=== PATIENT | female | born 1955 | race Caucasian/White ===

== ENCOUNTER 2024-02-01 20:31 | Inpatient (IN) | payer MEDICARE, OTHER, SELFPAY ==
[2024-02-01 18:07] VITALS: BMI 28.3
[2024-02-01 18:10] VITALS: BP 148/111
[2024-02-01 18:12] LABS: Glucose - Point of Care 112 mg/dl (70-99)
[2024-02-01 18:13] VITALS: BP 148/111
--- NOTE | 2024-02-01 18:23 | ED.CVA ---
History of Present Illness
General
Chief Complaint: CVA/TIA Symptoms
Time Seen by Provider: 02/01/24 18:10
Onset of Stroke Symptoms
Onset of symptoms known: No
Time pt last seen normal is known: Yes
Date last time pt seen normal: 01/31/24
Travel History
Have you had any contact with someone who has COVID-19?: No
Do you have any symptoms of coronavirus? Fever > 100 degrees, chills, cough, shortness of breath, sore throat, loss of taste or smell, muscle aches, or headache?: No
History of Present Illness
History of Present Illness:
See MDM
Past History
Past History
ED Past Medical History: Asthma, HTN and Other (Multiple sclerosis, Self caths, Right foot drop)
ED Past Surgical History: Appendectomy
Social History
Tobacco: Former smoker
Alcohol: Occasional
Drug: None
Personal:
Living: with family
Phy Exam
Physical Exam
Physical Exam:
See MDM
Scores
NIH Stroke Score
Level of Consciousness: 0 - Alert
LOC Questions: 0-Answers both correctly
LOC Commands: 0-Performs both correctly
Best Horizontal Gaze: 0-Normal
Visual [place]: 0=Normal, no visual loss
Facial Palsy: 1=Minor paralysis
Motor - Right Arm: 1=Drift < 10 seconds
Motor - Left Arm: 0=No drift 10 seconds
Motor - Right Le-Drift < 5 seconds
Motor - Left Le-No drift 5 seconds
Limb Ataxia: 0-Absent
Sensation: 0-Normal
Best Language: 0-No aphasia
Dysarthria: 0-Normal
Extinction and Inattention: 0-No abnormality
Total Score:: 3
Course
Orders/Labs/Results
Orders:
Orders
02/01/24 18:10
CT Head W/o Cont STROKE ALERT Urgent
Comment:
Reason For Exam: R side weakness since [address] Head/Neck Ang STROKE ALERT Urgent
Comment:
Reason For Exam: R side weakness since 11 am
Cardiac Monitoring- Treatment ONCE
02/01/24 18:11
Electrocardiogram (*1) Stat
Reason for Study: Other
Other Reason for Exam: neuro symptoms
EKG- Treatment ONCE
02/01/24 18:30
Cardiovascular Evaluation Urgent
Complete Blood Count/With Diff Urgent
Comprehensive Metabolic Panel Urgent
Glycohemoglobin (HgbA1c) Urgent
Troponin I Urgent
02/01/24 19:04
Aspirin Chewable [Low Strength Aspirin] 81 mg PO NOW STA
Clopidogrel Bisulfate [Plavix] 75 mg PO NOW STA
02/01/24 19:15
Consult Neurology [NEUROLOGY CONSULT] Routine
Consulting Provider: Nieves Lewis
Was physician already notified: Yes
02/01/24 19:34
PTT Urgent
Prothrombin Time Urgent
02/01/24 20:17
Admit/Transfer Patient As Directed
Co-Sign Provider:
Level of Care: Inpatient admission
Assign to:: Telemetry
Physician / Group: Ana/hospitalist
Diagnosis: R sided weakness/R facial droop
Reason for Telemetry: CVA/TIA
Date to Stop Telemetry: 02/04/24
Time to Stop Telemetry: 11:00
Reason for Hospitalization: R sided weakness/R facial droop
Expected length of stay greater than two midnights?: Yes
ELOS- Estimated Length of Stay in days: 3
I certify the patient meets the requirements for IP care: Yes
02/01/24 20:18
Code Status As Directed
Resuscitation Status: Full Code
02/01/24 20:21
Add On- LAB Routine
Tests Added?: lipid panel, A1c
02/01/24 22:36
Acetaminophen [Tylenol/Feverall] 650 mg RECTAL Q4HPRN PRN
Acetaminophen [Tylenol] 650 mg PO Q4HPRN PRN
Albuterol [ProAIR HFA INHALER] 2 puff INH R Q4HPRN PRN
Calcium Carbonate Chewable [Tums] 1 tablet PO Q4HPRN PRN
HydrALAZINE [Apresoline] 5 mg IV Q4HPRN PRN
Ropinirole [Requip] 1 mg PO HS
02/01/24 22:36
Case Management Consult ONCE
Case Management Consult: Discharge Planning
Comment: stroke/tia
DIETARY CONSULT Routine
Reason for Consult: stroke/TIA
NEUROLOGY CONSULT Urgent
Consulting Provider: Nieves Lewis
Was physician already notified: Yes
Carpet Renovator Urgent
Activity As Directed
Activity Level: As Tolerated
NIH Stroke Scale As Directed
Directions: Per protocol
Comment: every shift and with any change in condition or mental status
Neurological Checks As Directed
Frequency: q4h
Additional Instructions:: q4h x 24h upon admission to the floor, then qshift & with any change in condition
and mental status
Patient Education As Directed
Type: Stroke education packet
Comment: provide to patient and family
Pneumatic Compression Sleeves As Directed
Type: Knee high
Swallow Screening CVA/TIA ONLY As Directed
Comment: NPO until swallowing screening completed
If patient FAILS swallow screening:: NPO, Speech Therapy consult, Aspiration Precautions
If patient PASSES swallow screening, diet:: Low Fat
Above diet order entered?: Yes- passed screening
Vital Signs As Directed
Frequency: Per unit guidelines
Ot Eval And Treat Routine
Pt Eval And Treat Routine
Activity Level: As Tolerated
Speech Therapy Eval & Treat Routine
DX Deep Vein Thrombosis Video Routine
02/02/24 05:39
Cardiovascular Evaluation IN AM
02/02/24 08:00
Artificial Tears (Pf) [Refresh Eye Drops (Pf)] 1 drops BOTH EYES BID
Aspirin Chewable [Low Strength Aspirin] 81 mg PO DAILY
Baclofen [Lioresal] 20 mg PO BID
Cholecalciferol (Vitamin D3) [VITAMIN D3 (cholecalciferol)] 50 mcg PO BID
Clopidogrel Bisulfate [Plavix] 75 mg PO DAILY
Cyanocobalamin [Vitamin B-12] 1,000 mcg PO DAILY
Fluticasone/Salmeterol 45 [Advair Hfa 45/21 Mcg Inhaler] 2 puff INH R BID
Gabapentin [Neurontin] 600 mg PO BID
Modafinil [Provigil] 200 mg PO DAILY
02/02/24 20:00
Atorvastatin [Lipitor] 40 mg PO DAILY@1999
02/04/24 11:00
DC Protocol for Telemetry ONCE
Abnormal Lab Results
02/01/24 02/01/24
18:10 18:30
MCH 31.2 H pg
(27.0-31.0)
Lymphocytes % 18.6 L %
(20.5-51.1)
Creatinine 0.5 L mg/dL
(0.6-1.0)
Glucose 106 H mg/dl
(70-99)
Hemoglobin A1c 6.0 H %
(4.0-5.6)
Total Protein 6.2 L g/dl
(6.3-8.2)
POC Glucose 112 H mg/dl
(70-99)
02/01/24 18:30
02/01/24 18:30
Vital Signs
Initial and Last Documented VS:
Initial Vital Signs
Temp Pulse Resp BP Pulse Ox
98.4 F 61 16 148/111 97
02/01/24 18:10 02/01/24 18:10 02/01/24 18:10 02/01/24 18:10 02/01/24 18:10
Last Documented Vital Signs
Temp Pulse Resp BP Pulse Ox
98.1 F 91 17 122/85 97
02/02/24 15:00 02/02/24 15:00 02/02/24 15:00 02/02/24 15:00 02/02/24 15:00
MDM/Problems Addressed
Differential Diagnosis Includes:
HPI and MDM Narrative:
69-year-old female presenting with prearrival stroke alert. Patient was last normal at 1 AM when she went to bed. When she woke up at 11 AM, she noted that her right arm and right leg were weak. She also noted a right facial droop. She does have
a history of MS and states her right leg is chronically weak from the MS but states this feels different. She took 3 baby aspirin and was hoping that symptoms would resolve. When she realized that they were not getting any better, she called 911.
Prearrival stroke alert was called but patient is not a TNK candidate based on the timing of the strokelike symptoms
Physical exam
General: Well appearing and non-toxic
HEENT: protecting airway
Neck: appears supple
CV: No evidence of cyanosis. Regular rate and rhythm
Resp: No accessory muscle use
Abd: Non-distended
Extremities: No deformities
Neuro: alert. Right arm and right leg drift. Mild right facial paralysis. Sensation intact throughout
Psych: Normal affect
Skin: Intact
Problems Addressed including Acute and Chronic Conditions affecting care:
1. Strokelike symptoms
Acuity: acute
Prognosis: unstable
Details: Stroke alert called prior to arrival. Given that this was a wake-up stroke already out of the TNK window, we will not TNK. Will obtain CTA
Updates
Radiology called indicating CT and CTA both negative
Discussed with neurology. Since he already took 3 aspirins, will give with baby aspirin and will give dose of Plavix and admit
Differential Diagnosis (but not limited to): MS flare, stroke
Testing considered: MR brain but will admit for this
Drug therapy (if applicable): OTC meds, please see d/c instruction regarding Rx drugs
Amount and/or Complexity of Data Reviewed
Clinical info obtained from: Patient
External data reviewed: N/A
Labs I independently reviewed (but not limited to): Hgb stable
Radiology: The CT scan was personally and independently reviewed. In addition, official CT report reviewed.
Pulse Ox: not hypoxic
EKG independently reviewed: Sinus rhythm, PVCs, no STEMI
Fishing Tool Supervisor: Sinus rhythm
Critical Care: N/A
Risk of Complication:
Social Determinants of health: Good social support
Discussed with other providers: Neurology, Hospitalist
Escalation of Care includes Admit/Obs: Given the concern for stroke, will admit
Occasional wrong word or 'sound a like' substitutions may have occurred due to the inherent limitations of voice recognition software. Read the chart carefully and recognize, using context, where substitutions have occurred.
*Critical Care Note
Total Time (30-74mins, 75-104mins- exclusive of procedures): Not Applicable
ED Attending Note
-
Portions of this chart may have been created with voice recognition software.� Occasional wrong word or��sound alike� substitutions may have occurred due to the inherent limitations of voice recognition software.
Discharge Plan
Departure
Patient Disposition: Admit
Date of Disposition: 02/01/24
Time of Disposition: 19:14
Admit to: Telemetry
Presentation/result/management discussed w/ accepting MD/DO: Hospitalist
Discharge Problem:
Stroke-like symptoms
Interventions
Interventions:
*Risk Screen - Suicide Last Done: 02/01/24 19:30
*General Assessment Last Done: 02/01/24 20:39
*Neglect/Abuse Screening Last Done: 02/01/24 19:30
ED- Fall Risk Assessment Last Done: 02/01/24 19:30
*ED COVID-19 Vaccine History Last Done: 02/01/24 22:41
*Nursing Disposition Last Done: 02/01/24 22:41
ED- Pulmonary Assessment Last Done: 02/01/24 19:30
ED- Neurological Assessment Last Done: 02/01/24 19:30
ED- Cardiac Assessment Last Done: 02/01/24 19:30
ED Swallowing Screen Last Done: 02/01/24 19:44
Discharge Date and Time
Discharge Date/Time: 02/01/24 22:41
[2024-02-01 18:36] LABS: % Basophils 0.5 % (0-2); % Eosinophils 5.1 % (0-6); % Immature Granulocytes 0.1 % (0-0.5); % Lymphocytes 18.6 % (20.5-51.1); % Monocytes 6.3 % (1.7-9.3); % Neutrophils 69.4 % (42.2-75.2); Absolute Eosinophils 0.4 10^3/uL (0-0.7); Absolute Lymphocytes 1.5 10^3/uL (1.2-3.4); Absolute Monocytes 0.5 10^3/uL (0.1-0.6); Absolute Neutrophils 5.4 10^3/uL (1.4-6.5); Hematocrit 37.4 % (37.0-47.0); Hemoglobin 13.2 g/dL (12.0-16.0); Mean Corp Hgb Conc. 35.3 g/dL (33.0-37.0); Mean Corpuscular Hgb 31.2 pg (27.0-31.0); Mean Corpuscular Volume 88.4 fL (81.0-99.0); Mean Platelet Volume 10.2 fL (7.4-10.4); Nucleated Red Blood Cells % 0 %; Platelet Count 259 10^3/uL (130-400); Red Blood Cell Count 4.23 10^6/uL (4.20-5.40); White Blood Cell Count 7.8 10^3/uL (4.8-10.8)
[2024-02-01 19:01] LABS: Troponin I < 0.012 ng/ml
[2024-02-01 19:07] LABS: ALT (SGPT) 22 U/L (0-35); AST (SGOT) 29 U/L (14-36); Albumin 4.3 g/dl (3.5-5.0); Alkaline Phosphatase 93 U/L (38-126); Blood Urea Nitrogen 11 mg/dl (7-17); Calcium 9.7 mg/dl (8.4-10.2); Carbon Dioxide 22 mmol/L (22-30); Chloride 104 mmol/L (98-107); Estimated Creatinine Clearance 79 ml/min; Glucose 106 mg/dl (70-99); Potassium 3.9 mmol/L (3.5-5.1); Sodium 136 mmol/L (135-145); Total Bilirubin 0.7 mg/dl (0.2-1.3); Total Protein 6.2 g/dl (6.3-8.2); eGFR > 60.00
[2024-02-01] MEDS: LOW STRENGTH ASPIRIN 81 MG PO (19:28)
[2024-02-01] MEDS: PLAVIX 75 MG PO (19:28)
[2024-02-01 19:53] LABS: INR 1.05; PT 13.5 Sec (11.4-14.6)
[2024-02-01 19:54] LABS: APTT 26.7 Sec (23.4-35.0)
--- NOTE | 2024-02-01 20:05 | HPS.HSE ---
Family Physician
-
Family Physician: Amna Vee
Chief Complaint
-
Right-sided weakness upon awakening
History of Present Illness
HPI: 69-year-old female, PMH Asthma, HTN, HLD, Multiple sclerosis (self caths) with chronic right foot drop; p/w right arm and right leg weakness upon waking up at 11 AM in the morning. This was also associated with right facial droop. Symptoms
persisted hence she called EMS and came to the emergency room. She took 3 baby aspirin at home.
In the ER, she was given 4th baby aspirin with Plavix. Neuro consulted. CT head and CT angio were unrevealing.
Medical History
Past Medical History
Past Medical History: Reports Other
Additional Past Medical History:
Asthma
HTN
HLD
Multiple sclerosis (self caths) with chronic right foot drop
Past Surgical History: Reports Appendectomy and Other
Additional Past Surgical History:
Cataract surgery
D&C
Social History
Tobacco: Non-smoker
Alcohol: Occasional
Living: Alone
Family History
Family History: Not pertinent
Allergies / Home Medications
Allergies reflects when Allergies were last updated in [email or web address].
Home Medications with original date entered in [email or web address]
Allergy/Medication List:
Allergies
Allergy/AdvReac Type Severity Reaction Status Date / Time
No Known Allergies Allergy Verified 03/19/22 17:32
Home Medications
ocrelizumab 30 mg/mL intravenous solution (Ocrevus) 300 mg IV [id number] Multiple Sclerosis 02/27/22
albuterol sulfate 90 mcg/actuation aerosol inhaler 2 puff inhalation R Q4HPRN PRN SOB/WHEEZE #1 ea 04/01/22
atorvastatin 40 mg tablet 40 mg PO DAILY@1999 #30 tabs 04/01/22
calcium carbonate (Antacid (calcium carbonate)) 1 tab PO Q4HPRN PRN INDIGESTION #30 tabs 04/01/22
modafinil 200 mg tablet 200 mg PO DAILY #30 tabs 04/01/22
multivitamin with folic acid 400 mcg tablet (Tab-A-Malathi) 1 tab PO DAILY #30 tabs 04/01/22
polyvinyl alcohol-povidone (PF) 1.4 %-0.6 % eye drops in a dropperette (Refresh Classic (PF)) 1 drops BOTH EYES BID #1 ea 04/01/22
ropinirole 1 mg tablet 1 mg PO HS #30 tabs 04/01/22
baclofen 20 mg tablet 20 mg PO BID 02/01/24
cholecalciferol (vitamin D3) 50 mcg (2,000 unit) tablet 50 mcg PO BID 02/01/24
clonazepam 0.5 mg tablet 0.5 - 1 mg PO HS 02/01/24
cyanocobalamin (vitamin B-12) 1,000 mcg tablet (Vitamin B-12) 1,000 mcg PO DAILY 02/01/24
fluticasone 100 mcg-salmeterol 50 mcg/dose blistr powdr for inhalation (Wixela Inhub) 1 inh inhalation R BID 02/01/24
gabapentin 600 mg tablet 600 mg PO BID 02/01/24
losartan 25 mg tablet 25 mg PO HS 02/01/24
omega 8-swy-dwt-fish oil 1,000 mg (120 mg-180 mg) capsule (Fish Oil) 1 cap PO DAILY 02/01/24
Review of Systems
-
Neurological: Reports See HPI and Weakness; Denies Headache or Numbness
Physical Exam
Vital Signs
Vital Signs
Temp Pulse Resp BP Pulse Ox
36.9 C 68 12 148/111 97
02/01/24 18:10 02/01/24 19:45 02/01/24 19:45 02/01/24 18:13 02/01/24 19:30
Physical Exam
General: Well Developed, Well Nourished, No Apparent Distress, Comfortable and Conversant
HEENT: NormoCephalic, Moist mucous membranes and Atraumatic
Respiratory: Clear and Non Labored Respirations; No Accessory Resp Muscle Use
Cardiac: S1/S2 and Regular Rhythm; No Murmur or Rub
GI: Soft, Non Tender, Non Distended and Normal Bowel Sounds; No Organomegaly
Rectal: Deferred by Provider
Musculoskeletal: No Clubbing, No Cyanosis and No Edema
Skin: No Rash
Neuro: Awake, Facial Droop (Right facial droop) and Other (Right arm weakness power 2/5, chronic right leg weakness power 1/5)
Psych: Calm and Intact Judgment/Insight
Laboratory Results
-
02/01/24 18:30
02/01/24 18:30
Laboratory Results
PT 13.5 Sec (11.4-14.6) 02/01/24 19:34
INR 1.05 02/01/24 19:34
APTT 26.7 Sec (23.4-35.0) 02/01/24 19:34
Total Bilirubin 0.7 mg/dl (0.2-1.3) 02/01/24 18:30
AST 29 U/L (14-36) 02/01/24 18:30
ALT 22 U/L (0-35) 02/01/24 18:30
Alkaline Phosphatase 93 U/L (38-126) 02/01/24 18:30
Troponin I < 0.012 ng/ml 02/01/24 18:30
Data Reviewed
-
CT Scan: Report Reviewed by me
Lab Data: Labs Reviewed by me
Impression/Plan
-
HPI: 69-year-old female, PMH Asthma, HTN, HLD, Multiple sclerosis (self caths) with chronic right foot drop; p/w right arm and right leg weakness upon waking up at 11 AM in the morning. This was also associated with right facial droop. Symptoms
persisted hence she called EMS and came to the emergency room. She took 3 baby aspirin at home.
In the ER, she was given 4th baby aspirin with Plavix. Neuro consulted. CT head and CT angio were unrevealing.
A/P:
# New onset right arm/right leg weakness with right facial droop, admitted for TIA/acute stroke workup
CT head and CT angio in ER unrevealing
Not a candidate for TNK
Check MRI brain
Continue aspirin/Plavix
Check lipid panel, A1c
For now, allow permissive hypertension
Neuro consult
Speech eval prior to starting diet
# HTN
For now, allow permissive hypertension
Hold LIFTER/DRIVER losartan
Hydralazine PRN for SBP > 180
# HLD
# Multiple sclerosis (self caths) with chronic Right foot drop
# Asthma, suspect mild intermittent
DVT prophylaxis: SCD for now while awaiting MRI brain
Full code
[2024-02-01 21:11] LABS: HDL Cholesterol 74 mg/dl; LDL Cholesterol, Calculated 24 mg/dl; Total Cholesterol 110 mg/dl (50-199); Triglyceride 60 mg/dl (10-149); Very Low Density Lipoprotein 12 mg/dl (0-30)
[2024-02-01 21:32] VITALS: BP 137/125
--- NOTE | 2024-02-01 22:00 | PTCARENOTE ---
PT IS AAOX3, no c/o pain. pt NIH=4. right sided facial droops, right sided weakness: right arm (NEW), RIGHT LEG (INCREASED WEAKNESS from baseline weakness) w/ chronic right foot drop.pt has multiple sclerosis with chronic right foot drop.
pt is on tele SR w/ a PVC's trigeminy. pt straight caths at home. pt is oriented to room w/ call almaguer in reach
[2024-02-01 22:30] VITALS: BP 155/72
[2024-02-01 23:59] VITALS: BMI 28.3
[2024-02-02] VITALS (7 sets, daily range): BP systolic 117–156; BP diastolic 69–96; PULSE 79; O2SAT 98
[2024-02-02] MEDS: NEURONTIN 600 MG PO ×3 (00:17→20:50)
[2024-02-02] MEDS: REQUIP 1 MG PO ×2 (00:17→21:44)
[2024-02-02] MEDS: TYLENOL 650 MG PO ×2 (00:22→13:37)
[2024-02-02 06:52] LABS: HDL Cholesterol 67 mg/dl; LDL Cholesterol, Calculated 24 mg/dl; Total Cholesterol 109 mg/dl (50-199); Triglyceride 92 mg/dl (10-149); Very Low Density Lipoprotein 18 mg/dl (0-30)
--- NOTE | 2024-02-02 07:28 | W.PN.HOSP.TC ---
Today's Communication/Plan
-
see bold
Assessment / Plan
Assessment / Plan
HPI: 69-year-old female, PMH Asthma, HTN, HLD, Multiple sclerosis (self caths) with chronic right foot drop; p/w right arm and right leg weakness upon waking up at 11 AM in the morning. This was also associated with right facial droop. Symptoms
persisted hence she called EMS and came to the emergency room. She took 3 baby aspirin at home.
In the ER, she was given 4th baby aspirin with Plavix. Neuro consulted. CT head and CT angio were unrevealing.
A/P:
# Acute�subacute CVA of the left jana
# New onset right arm/right leg weakness with right facial droop
CT head and CT angio in ER unrevealing, Not a candidate for TNK
Brain MRI confirms acute�subacute stroke
Patient has a history of paroxysmal atrial fibrillation, cardiology recommends starting Eliquis -neurology recommends tomorrow as start date
Stop aspirin/Plavix send she will be started on Eliquis
LDL at goal at 24, continue atorvastatin
Hemoglobin A1c 6.0
Consult physiatry for acute rehab
#Paroxysmal atrial fibrillation
Appreciate cardiology input, echo requested
'History of paroxysmal atrial fibrillation in the setting of COVID-19 infection in February 2022. Episode was self-limiting with conversion to sinus rhythm. Patient had been on low-dose beta-jonn which was discontinued as outpatient. Outpatient
cardiac monitoring in September 2022 failed to demonstrate any recurrence of atrial fibrillation'
Plan to start Eliquis tomorrow
# HTN
Blood pressure 122/85 without medications
Continue holding losartan, resume if it increases
# HLD
Continue statin
# Multiple sclerosis (self caths) with chronic Right foot drop
# Asthma, suspect mild intermittent
# Glucose intolerance, hemoglobin A1c 6.0
Diabetic diet
DVT prophylaxis: SCD for now while awaiting MRI brain
Full code
Total time spent to see the patient on the floor, examine the patient, review data and lab results, discuss treatment plan with patient, nursing staff around 50 minutes.
Physical Exam
General: No acute distress
HEENT: Normocephalic, Atraumatic, EOMI, MMM
Respiratory: Clear to Auscultation bilaterally
Cardiac: Normal S1/S2, Regular Rate and Rhythm
GI: Soft, Nontender, Nondistended, Normal Bowel Sounds
Extremities: No Clubbing, Cyanosis, or Edema
Neuro:
Right-sided weakness
Right-sided facial droop
Psych: Calm, Cooperative
Derm: No Visible lesions
Anticipated Discharge: 24 - 48 hours
Subjective/Interval History
-
Date of Service: February 02, 2024
Patient continues to have severe right-sided weakness. She also has a right facial droop. No fever, no vomiting.
Objective Data
-
Labs:
Laboratory Results
02/01/24
19:34
PT 13.5
INR 1.05
APTT 26.7
Vital Signs:
Vital Signs
Temp Pulse Resp BP Pulse Ox
98.9 F 74 14 121/79 97
02/02/24 03:00 02/02/24 03:00 02/02/24 03:00 02/02/24 03:00 02/02/24 03:00
I&O
02/01/24 02/02/24 02/03/24
06:59 06:59 06:59
Output Total 1100 / 1100
Balance -1100 / -1100
[2024-02-02] MEDS: ADVAIR HFA 45/21 MCG INHALER 2 PUFF INH ×2 (07:59→19:00)
--- NOTE | 2024-02-02 08:16 | CON.NEURO4 ---
Addendum entered and electronically signed by Ten Campa MD 02/02/24 11:13:
Studies reviewed.
I have personally examined the patient. I reviewed and agree with the CHILD DEVELOPMENT INSTRUCTOR's Note.
My addenda:
Awake, alert, interactive. No acute distress.
Speech intact.
Follows 2-step requests w/o difficulty. No tremor.
Extra-ocular movements intact.
Facial movements full and symmetric. Hearing intact to normal conversational volume.
Neck: full ROM.
Chest: no dyspnea
Heart: no JVD
Ext: (-) Clubbing, (-) Cyanosis, (-) Edema
IMPRESSIONS/RECOMMENDATIONS:
Abrupt onset of right upper extremity weakness with prior history of right lower extremity weakness and longstanding history of multiple sclerosis
Presumed the patient has experienced an acute ischemic stroke seeing symptomatology
Check MRI with and without contrast of brain
Check MRI with and without contrast of cervical spine to ensure no structural abnormality producing symptoms
Continue patient's usual ocrelizumab dosed every 6 months
No indication at this time for high-dose steroids
Check blood work for additional metabolic abnormalities which are probably minimally related to the patient's symptomatology
Rehabilitation evaluations
Medical educational materials to be provided
DVT prophylaxis
Will continue to follow patient.
Original Note:
Documented by User: Luly Levy NP 02/02/24 10:24
Consultation - Neurology 4
-
CONSULTING PHYSICIAN: eTn Campa MD
REFERRING PHYSICIAN: ER/Dr. Marinelli
DICTATED BY: GI Fisher
DATE/TIME OF REQUEST: 02/01/24
DATE/TIME OF CONSULTATION: 02/02/24
Reason for Consultation: Stroke Alert
History of Present Illness:
This is a 69-year-old right-handed female with a PMH of multiple sclerosis, HTN, HLD who has presented to the hospital on 02/01/24 as a prehospital stroke alert with report of RUE weakness and right facial droop. Patient was diagnosed with multiple
sclerosis at age 23 after developing right eye retrobulbar optic neuritis. She is followed by an MS specialist Dr. Burgess in [place], [place]. She reports that in the past she has been on beta interferons, rituximab, and methotrexate. She has been on Ocrevus
for several years now. She is not taking steroids and can't remember the last time she received them. Her RLE is chronically weak with right foot drop. At baseline, she uses a wheelchair for ambulation and self-catheterizes. She takes gabapentin and
Klonopin for 'jumpy eyes.' She also takes baclofen and ropinirole for RLE discomfort. She gets yearly MS surveillance imaging and reports she last had MRI's in November 2023 in [place] that were stable. She joined a stem cell trial about 8 years ago and was
set to have stem cells injected in her spine in September 2024.
Patient reports feeling at her baseline when she went to bed around 0100 on 02/01/24. She woke up around 0300 to use the bathroom and reports still feeling at her baseline. She woke up again in the morning around [id number] and noticed that her right
face and RUE had a tingling sensation and her RUE felt slightly weak. She took three aspirin 81mg tablets thinking her symptoms would resolve, and she went about her day. As the day went on, her RUE weakness worsened and she decided to call 911. She
presented to the ER as a prehospital stroke alert. CT head and CTA head/neck were obtained and are negative for any acute abnormalities. NIHSS was 3 for minor right facial paralysis, RUE drift, and RLE drift. She was not a candidate for TNK/IAT due
to being outside of the time window and no LVO on CTA imaging. DAPT was initiated in the ER. Today (02/02/24), patient reports that her RUE weakness has worsened, she can barely move her fingers and can't lift her arm. She still has tingling in her
right face and right arm and her speech is dysarthric. She denies any headache, dizziness, vision changes, swallow difficulty, nausea, chest pain, palpitations, and shortness of breath. She denies any history of TIA or stroke. In 2021 while she had
Covid she developed a PE and paroxysmal Afib was seen on cardiac monitoring but she spontaneously converted back to NSR. She followed with Cardiology for a few months and wore a 7 day harp action assembler which was unremarkable. She was on Eliquis 5mg
BID for at least one year but was told she can stop taking this and stopped it at an unclear time. She is not currently taking any blood thinning medications.
Past Medical History: multiple sclerosis, paroxysmal Afib, HTN, HLD, PE during Covid infection, asthma, GERD, depression, colon polyps, herniated discs
Surgical History: b/l cataract extraction, lens implantation, d&c,, eyelid surgery, appendectomy, ERCP
Family History: Mother- Alzheimer's.
Social History: Former smoker. Denies alcohol and illicit drug use.
Allergies: No known allergies.
Home Medications: See below.
Review of Symptoms:
Patient denies any fever, headache, chest pain, shortness of breath, GI symptoms.
�Per the HPI.�All systems are reviewed negative except above.
Physical Exam:
The patient is afebrile, abdomen is nondistended, breathing is unlabored, skin is warm and dry, no edema.
NIH Stroke Scale:
I performed the NIH stroke scale on the patient on 02/02/24 at 0845. The patient scored 9 points on the NIH stroke scale assessment, which were assigned as follows: See below.
Neurologic Examination:
The patient is awake, alert and oriented x 3. She is able to follow commands and answer questions appropriately. There is no aphasia or dysarthria. On cranial nerve assessment, pupils are 3 mm bilateral, round and reactive to light and
accommodation. Visual alvarenga are full. Extraocular movements are intact. Slow saccades. Facial sensations are mildly reduced on the right. There is a right facial droop at rest/with movement. Hearing is intact bilaterally to normal conversation
volume. Tongue palate and uvula are midline. Sternocleidomastoid strengths are full bilaterally. Motor strengths are 5/5 left upper, 1/5 right upper, 5/5 left lower, and 3/5 right lower hip flexion, 1/5 R plantar/dorsiflexion on medical research
[place] scale. There is no drift on the left side, JOSE right side. No involuntary movement noted. Sensations of cold is mildly reduced in BLE. Sensation of vibration is intact and bilaterally symmetrical. There was no extinction noted on double
simultaneous stimulation. Coordination is intact by finger to nose bilaterally.
Lab Results: See below.
Neuro Imaging:
1. CT Head 02/01/24: No acute intracranial abnormality noted. ASPECTS Score: 10.
2. CTA Head/Neck 02/01/24: No significant vascular occlusion, aneurysm or dissection.
Differentials for the patient's presentation include:
1. Acute right hemisphere ischemic infarct likely producing patient's symptoms. Concern for embolic source of stroke given history of pAfib.
2. Multiple sclerosis flare possibly producing symptoms but less likely.
3. History of paroxysmal Afib, not on OAC.
4. Prediabetes.
Patient has the following risk factors for their symptoms: Afib in the past not on OAC, multiple sclerosis, HTN, HLD, hx PE
IV Tenecteplase/IAT candidacy: Not a candidate for TNK/IAT due to outside of time window/no LVO.
Recommendations:
-Continue DAPT with aspirin 81mg and Plavix 75mg daily for now. If MRI brain demonstrates a stroke, will strongly consider restarting OAC instead of DAPT therapy due to hx Afib.
-MRI brain and cervical spine w/ and w/o contrast pending.
-Goal normotension as it is 24 hours from symptom onset.
-LDL goal <70. LDL is 24. Patient reports that she takes 1/2 tablet of atorvastatin 40mg daily. Okay to continue atorvastatin 20mg daily as LDL is well below goal.
-Goal normoglycemia, hbA1c is 6.0.
-NIHSS and neurological checks per unit guidelines.
-Provide patient with a stroke education packet.
-PT/OT/ST evaluations.
-DVT prophylaxis.
-Will follow pending results.
Discussed patient care with: Dr. Campa, the patient
Vital Signs and Labs
-
Vital Signs and Labs:
Vital Signs
Temp Pulse Resp BP Pulse Ox
98.9 F 74 14 121/79 97
02/02/24 03:00 02/02/24 03:00 02/02/24 03:00 02/02/24 03:00 02/02/24 03:00
Lab Results
02/01/24 18:30
02/01/24 18:30
PT 13.5 Sec (11.4-14.6) 02/01/24 19:34
INR 1.05 02/01/24 19:34
APTT 26.7 Sec (23.4-35.0) 02/01/24 19:34
Sodium 136 mmol/L (135-145) 02/01/24 18:30
Potassium 3.9 mmol/L (3.5-5.1) 02/01/24 18:30
BUN 11 mg/dl (7-17) 02/01/24 18:30
Glucose 106 mg/dl (70-99) H 02/01/24 18:30
Calcium 9.7 mg/dl (8.4-10.2) 02/01/24 18:30
LDL Cholesterol, Calc 24 mg/dl 02/02/24 05:39
Medications
-
Active Medications
Generic Name Dose Route Start Last Admin
Trade Name Freq PRN Reason Stop Dose Admin
Acetaminophen 650 mg 02/01/24 22:36
Acetaminophen 650 Mg Rectal Suppository RECTAL 02/29/24 22:35
Q4HPRN PRN
RODRIGEZ, mild pain, or temp >100.4F
Acetaminophen 650 mg 02/01/24 22:36 02/02/24 00:22
Acetaminophen 325 Mg Tablet PO 02/29/24 22:35 650 mg
Q4HPRN PRN Administration
RODRIGEZ, mild pain, or temp >100.4F
Albuterol 2 puff 02/01/24 22:36
Albuterol Hfa [90 Mcg/Dose] Inhaler INH
R Q4HPRN PRN
SOB/WHEEZE
Protocol
Artificial Tears 1 drops 02/02/24 08:00
Artificial Tears Pf (Refresh) 10 Drop Droperette BOTH EYES 03/01/24 07:59
BID SOLIS
Aspirin 81 mg 02/02/24 08:00
Aspirin 81 Mg Chewable Tablet PO 03/01/24 07:59
DAILY SOLIS
Atorvastatin Calcium 40 mg 02/02/24 20:00
Atorvastatin (Lipitor) 40 Mg Tablet PO 03/01/24 19:59
DAILY@2000 SOLIS
Baclofen 20 mg 02/02/24 08:00
Baclofen 20 Mg Tablet PO 03/01/24 07:59
BID SOLIS
Calcium Carbonate 1 tablet 02/01/24 22:36
Calcium Carbonate 500 Mg (Regular-Strength) Chew Tablet PO 02/29/24 22:35
Q4HPRN PRN
INDIGESTION
Cholecalciferol 50 mcg 02/02/24 08:00
Cholecalciferol (Vitamin D3) 50 Mcg Tablet (2,000 Units) PO 03/01/24 07:59
BID SOLIS
Clopidogrel Bisulfate 75 mg 02/02/24 08:00
Clopidogrel 75 Mg Tablet PO 03/01/24 07:59
DAILY SOLIS
Cyanocobalamin 1,000 mcg 02/02/24 08:00
Cyanocobalamin 1,000 Mcg Tablet PO 03/01/24 07:59
DAILY SOLIS
Gabapentin 600 mg 02/02/24 08:00
Gabapentin 300 Mg Capsule PO 03/01/24 07:59
BID SOLIS
Hydralazine HCl 5 mg 02/01/24 22:36
Hydralazine 20 Mg/Ml Vial IV 02/29/24 22:35
Q4HPRN PRN
SBP > 180
Modafinil 200 mg 02/02/24 08:00
Modafinil 200 Mg Tablet PO 03/01/24 07:59
DAILY SOLIS
Ropinirole HCl 1 mg 02/01/24 22:36 02/02/24 00:17
Ropinirole 1 Mg Tablet PO 02/29/24 22:35 1 mg
HS SOLIS Administration
Fluticasone/Salmeterol 2 puff 02/02/24 08:00 02/02/24 07:59
Advair Hfa 45/21 Inhaler INH 03/01/24 07:59 2 puff
R BID SOLIS Administration
Sodium Chloride 0 flush 02/01/24 23:00
Sodium Chloride 0.9% (Flush) Syringe IV 02/29/24 22:59
PER PROTOCOL SOLIS
Home Medications
�Medication �Instructions �Recorded
ocrelizumab 30 mg/mL intravenous 300 mg IV [id number] Multiple 02/27/22
solution (Ocrevus) Sclerosis
albuterol sulfate 90 mcg/actuation 2 puff inhalation R Q4HPRN PRN 04/01/22
aerosol inhaler SOB/WHEEZE #1 ea
atorvastatin 40 mg tablet 40 mg PO DAILY@1999 #30 tabs 04/01/22
calcium carbonate (Antacid 1 tab PO Q4HPRN PRN INDIGESTION 04/01/22
(calcium carbonate)) #30 tabs
modafinil 200 mg tablet 200 mg PO DAILY #30 tabs 04/01/22
multivitamin with folic acid 400 1 tab PO DAILY #30 tabs 04/01/22
mcg tablet (Tab-A-Malathi)
polyvinyl alcohol-povidone (PF) 1 drops BOTH EYES BID #1 ea 04/01/22
1.4 %-0.6 % eye drops in a
dropperette (Refresh Classic (PF))
ropinirole 1 mg tablet 1 mg PO HS #30 tabs 04/01/22
baclofen 20 mg tablet 20 mg PO BID 02/01/24
cholecalciferol (vitamin D3) 50 50 mcg PO BID 02/01/24
mcg (2,000 unit) tablet
clonazepam 0.5 mg tablet 0.5 - 1 mg PO HS 02/01/24
cyanocobalamin (vitamin B-12) 1,000 mcg PO DAILY 02/01/24
1,000 mcg tablet (Vitamin B-12)
fluticasone 100 mcg-salmeterol 50 1 inh inhalation R BID 02/01/24
mcg/dose blistr powdr for
inhalation (Wixela Inhub)
gabapentin 600 mg tablet 600 mg PO BID 02/01/24
losartan 25 mg tablet 25 mg PO HS 02/01/24
omega 4-lfj-saz-fish oil 1,000 mg 1 cap PO DAILY 02/01/24
(120 mg-180 mg) capsule (Fish Oil)
NIH Stroke Score
Subsequent NIH Scale
Date of Subsequent NIH Scale: 02/02/24
Time of Subsequent NIH Scale: 08:45
NIH Stroke Score
Level of Consciousness: 0 - Alert
LOC Questions: 0-Answers both correctly
LOC Commands: 0-Performs both correctly
Best Horizontal Gaze: 0-Normal
Visual Alvarenga: 0=Normal, no visual loss
Facial Palsy: 2=Partial paralysis
Motor - Right Arm: 3=None vs. gravity
Motor - Left Arm: 0=No drift 10 seconds
Motor - Right Le-Partial vs. gravity
Motor - Left Le-No drift 5 seconds
Limb Ataxia: 0-Absent
Sensation: 1-Mild loss
Best Language: 0-No aphasia
Dysarthria: 1-Mild slurring
Extinction and Inattention: 0-No abnormality
Total Score:: 9
Modified Clare (mRS) Score
Modified Clare Scale (mRS): Moderately severe disability. Unable to attend to bodily needs/walk.
Score: 4

Documented by User: Ten Campa MD 02/02/24 11:08
NIH Stroke Score
NIH Stroke Score
Total Score:: 9
Modified [place] (mRS) Score
Score: 4
[2024-02-02] MEDS: PROVIGIL 200 MG PO (09:11)
[2024-02-02] MEDS: VITAMIN B-12 1000 MCG PO (09:12)
[2024-02-02] MEDS: VITAMIN D3 (cholecalciferol) 50 MCG PO ×2 (09:13→20:51)
[2024-02-02] MEDS: LOW STRENGTH ASPIRIN 81 MG PO (09:13)
[2024-02-02] MEDS: PLAVIX 75 MG PO (09:13)
[2024-02-02] MEDS: REFRESH EYE DROPS (PF) 1 DROPS BOTH EYES ×2 (09:13→20:51)
[2024-02-02] MEDS: LIORESAL 20 MG PO ×2 (09:14→20:51)
[2024-02-02 09:16] LABS: Erythrocyte Sed Rate 5 mm/hour (0-20)
--- NOTE | 2024-02-02 09:30 | PTOTSP ---
Speech Language Pathology
Pt seen for speech/language evaluations. Mild dysarthria noted with incoordinated diadochokinetic (DDK) rates. Pt was 100% intelligible in both known and unknown contexts. Language evaluated via the Quick Aphasia Battery (QAB, form 1). Pt with
mild receptive aphasia. Pt with an overall score of 9.22 indicating score WNL. Scored WNL on all subtests except for sentence comprehension with score of 6.25, indicative of moderate deficits.
Pt also seen for clinical bedside swallow evaluation. Pt denied any hx of dysphagia. She also denied having PNA other than when she had COVID. P.O. trials of regular solids and thin liquids provided. Adequate mastication, bolus formation, and
A-P transit noted with no pocketing noted. No overt signs of aspiration.
Recommend:
(1) Regular solids/thin liquids
(2) Aspiration precautions: sit upright, ensure oral cavity clear and no pocketing on R
(3) Meds as tolerated
(4) CUTTING MACHINE OPERATOR to continue to follow for dysarthria and further therapeutic reassessment of cognitive-linguistic abilities. Further dysphagia therapy not indicated at this time.
[2024-02-02 10:08] LABS: TSH 2.98 uIU/ml (0.47-4.68)
[2024-02-02 10:44] LABS: Folate > 20.0 ng/ml (2.76-20); Vitamin B12 870 pg/ml (239-931)
[2024-02-02] MEDS: THERAGRAN 1 TABLET PO (13:36)
--- NOTE | 2024-02-02 13:37 | CON.CAR ---
Addendum entered and electronically signed by Juan C De La Cruz MD 02/02/24 16:51:
I saw and examined the patient.
The Human Resources Recruiter's note was reviewed and I agree with the note.
Comment: Briefly, 69-year-old woman past medical history of paroxysmal atrial fibrillation, hypertension, prior PE and multiple sclerosis coming in with worsening right-sided weakness and facial droop concerning for acute stroke
Patient underwent MRI of the brain which revealed subacute left pontine infarct
Appreciate neurology input
Given her documented history of atrial fibrillation would consider initiating oral anticoagulation with Eliquis when safe from neurology standpoint, [id number] score of 5 for hypertension, age, stroke, female sex
She is having frequent PVCs on telemetry would also consider initiating low-dose beta-jonn
For completeness would check transthoracic echocardiogram
Original Note:
Consultation
Consultation Request
Date/Time Consultation Requested: 02/02/2024
Date/Time Consultation Performed: 02/02/2024
Requesting Provider: Dr. Jeffries
Performing Provider: Kirstie Flannery PA-C for Dr. De La Cruz
Reason for Consultation: PAF
Medical History
-
History of Present Illness:
Patient is a 69-year-old female with past medical history significant for multiple sclerosis, hypertension, hyperlipidemia, neurogenic bladder with self-catheterization, asthma, history of pulmonary embolism in setting of COVID-19 infection February
2021, paroxysmal atrial fibrillation in setting of COVID-19 infection February 2022, bronchiectasis/interstitial lung disease who presented to emergency department 01/31/2023 as a prehospital stroke alert with complaints of right upper extremity weakness
and right-sided facial droop. Head CT was negative for acute stroke. CTA of head and neck showed no large vessel occlusion or significant stenosis. NIH stroke scale score was 3 (right facial paralysis, RUE drift, and RLE drift). She was not a
candidate for TNK/IAT due to being outside of the time window and no LVO on CTA imaging. EKG showed sinus rhythm with PVCs. Troponin was negative. DAPT was initiated. Patient continued to have worsening of symptoms within 24 hours of
presentation including worsening right-sided weakness, paresthesias of right face arm and dysarthric speech. MRI brain confirms acute to subacute left pontine infarct with old right cerebellar and left caudate nucleus infarctions. Cardiology being
asked to see patient given new stroke and history of paroxysmal atrial fibrillation.
Patient has history of paroxysmal atrial fibrillation in the setting of pulmonary hypertension and COVID-19 infection in February 2022. Paroxysmal atrial fibrillation with brief and self-limiting with spontaneous conversion to sinus rhythm at that
time. Echocardiogram at that time showed preserved ejection fraction and no significant valvular disease. Patient wore an outpatient monitor in September 2022 which failed to demonstrate recurrence of atrial fibrillation. Patient had been on
Eliquis for PE. That was discontinued at recommendation of pulmonary. Patient denies having chest pain, shortness of breath, palpitations, dizziness, lightheadedness.
PMH:
Multiple sclerosis on chronic immunosuppression
Ambulatory dysfunction secondary to MS
Neurogenic bladder/chronic self-catheterization
Restless leg syndrome
Asthma
Hypertension
Hyperlipidemia
Pulmonary embolism in setting of COVID-19 infection February 2022
Paroxysmal atrial fibrillation in setting of COVID-19 infection February 2022
Bronchiectasis/interstitial lung disease
Colon polyp
Herniated disc
Past Medical History
Past Medical History: Other (see HPI)
Past Surgical History: Appendectomy, Gynecological (D&C) and Other (Bilateral cataract extraction, lens implants, eyelid surgery, ERCP)
Social History
Tobacco: Former Smoker
Alcohol: Occasional
Drug: None
Personal:
Living: With Family
Family History
Family History: Other (Father had coronary artery disease, hypertension. Mother lymphoma, leukemia)
Allergies / Home Medications
Allergy/AdvReac Type Severity Reaction Status Date / Time
No Known Allergies Allergy Verified 03/19/22 17:32
�Medication �Instructions �Recorded �Confirmed �Type
ocrelizumab 30 mg/mL intravenous 300 mg IV [id number] Multiple 02/27/22 02/01/24 History
solution (Ocrevus) Sclerosis
albuterol sulfate 90 mcg/actuation 2 puff inhalation R Q4HPRN PRN 04/01/22 02/01/24 Rx
aerosol inhaler SOB/WHEEZE #1 ea
atorvastatin 40 mg tablet 40 mg PO DAILY@2000 #30 tabs 04/01/22 02/01/24 Rx
calcium carbonate (Antacid 1 tab PO Q4HPRN PRN INDIGESTION 04/01/22 02/01/24 Rx
(calcium carbonate)) #30 tabs
modafinil 200 mg tablet 200 mg PO DAILY #30 tabs 04/01/22 02/01/24 Rx
polyvinyl alcohol-povidone (PF) 1 drops BOTH EYES BID #1 ea 04/01/22 02/01/24 Rx
1.4 %-0.6 % eye drops in a
dropperette (Refresh Classic (PF))
ropinirole 1 mg tablet 1 mg PO HS #30 tabs 04/01/22 02/01/24 Rx
baclofen 20 mg tablet 20 mg PO BID Pain 02/01/24 02/01/24 History
cholecalciferol (vitamin D3) 50 50 mcg PO BID Supplement 02/01/24 02/01/24 History
mcg (2,000 unit) tablet
clonazepam 0.5 mg tablet 0.5 - 1 mg PO HS Sleep 02/01/24 02/01/24 History
cyanocobalamin (vitamin B-12) 1,000 mcg PO DAILY Supplement 02/01/24 02/01/24 History
1,000 mcg tablet (Vitamin B-12)
fluticasone 100 mcg-salmeterol 50 1 inh inhalation R BID 02/01/24 02/01/24 History
mcg/dose blistr powdr for Lung/Breathing Issues
inhalation (Wixela Inhub)
gabapentin 600 mg tablet 600 mg PO BID Neurological 02/01/24 02/01/24 History
Condition
losartan 25 mg tablet 25 mg PO HS Blood Pressure 02/01/24 02/01/24 History
omega 8-lzw-ptv-fish oil 1,000 mg 1 cap PO DAILY Supplement 02/01/24 02/01/24 History
(120 mg-180 mg) capsule (Fish Oil)
multivitamin with folic acid 400 1 tab PO DAILY Supplement 02/02/24 02/01/24 History
mcg tablet (Tab-A-Malathi)
Review of Systems
-
History Source: Patient
All other systems: Negative unless noted
Physical Exam
Vital Signs
Temp Pulse Resp BP Pulse Ox
98.7 F 77 18 125/69 97
02/02/24 07:00 02/02/24 07:00 02/02/24 08:03 02/02/24 07:00 02/02/24 08:03
GEN: No distress, awake, Ox3, sitting in chair
HEENT: supple, anicteric, mmm
LUNGS:scattered crackles on right >Lt otherwise CTA, no wheezes
CV: Reg with occasional ectopy, S1/S2, no murmur, rub or gallop
ABD: soft, BS+, NT/ND
EXT: No edema, clubbing, cyanosis
NEURO: Right-sided facial droop, right upper extremity weakness, right lower extremity weakness, mild dysarthria
SKIN: No rash, warm, dry, pink
Lab Results
02/01/24 18:30
02/01/24 18:30
Troponin I < 0.012 ng/ml 02/01/24 18:30
Impression / Plan
-
PCP: Jagruti Escobar
Plastic Welding Machine Operator: Clara Bryson, last saw September 2022
Impression:
Presented 02/01/2024 with right-sided weakness and dysarthria
Acute to subacute left Pontine stroke
frequent PVCs
Multiple sclerosis on chronic immunosuppression with Ocervus
Ambulatory dysfunction secondary to MS
Neurogenic bladder/chronic self-catheterization
Restless leg syndrome
Asthma
Hypertension
Hyperlipidemia
Pulmonary embolism in setting of COVID-19 infection February 2022
Paroxysmal atrial fibrillation in setting of COVID-19 infection February 2022
Bronchiectasis/interstitial lung disease
Colon polyp
Herniated disc
Echo 03/09/2022: EF 60 to 65%, normal regional wall motion, trace MR, trace AR, trace TR, estimated PAP 27 mmHg
Outpatient monitoring engineer completed 09/22/2022: Sinus rhythm, heart rate range 55 to 130 bpm, average 89 bpm. No atrial fibrillation or flutter. Atrial tachycardia 7 episodes longest beat average 126 8 bpm rare PAC/PVC 0.03% / 0.11%
Plan:
-Presented 02/01/2024 with right upper extremity weakness, dysarthria and concern for stroke.
-EKG in emergency department demonstrated sinus rhythm with PVCs. No evidence of arrhythmia on telemetry this admission.
-History of paroxysmal atrial fibrillation in the setting of COVID-19 infection in February 2022. Episode was self-limiting with conversion to sinus rhythm. Patient had been on low-dose beta-jonn which was discontinued as outpatient. Outpatient
cardiac monitoring in September 2022 failed to demonstrate any recurrence of atrial fibrillation.
-MRI completed 02/02/2024 shows acute to subacute infarction of left jana. There is also suspicion of old infarction in right cerebellar and left caudate nucleus.
-[id number] score 5 (age, HTN, female, stroke)
-Would recommend anticoagulation with Eliquis 5 mg twice a day. Timing to be determined by neurology based on size and location of stroke. Would continue DAPT until cleared to start Eliquis
-Will check echocardiogram
-Per review of telemetry patient has frequent PVCs in ventricular bigeminy and trigeminy pattern. Patient denies palpitations. Would start low-dose beta-jonn 12.5 mg daily at bedtime.
-Hypertension. Blood pressure reasonably controlled. Continue losartan
-History of hyperlipidemia. Lipids 02/02/2024 TC 109, HDL 67, LDL 24, triglycerides 92. Lipids are at goal. Continue atorvastatin
-TSH 2.90
-Will arrange for outpatient cardiac follow-up
HPI 02/02/2024:
Patient is a 69-year-old female with past medical history significant for multiple sclerosis, hypertension, hyperlipidemia, neurogenic bladder with self-catheterization, asthma, history of pulmonary embolism in setting of COVID-19 infection February
2021, paroxysmal atrial fibrillation in setting of COVID-19 infection February 2022, bronchiectasis/interstitial lung disease who presented to emergency department 01/31/2023 as a prehospital stroke alert with complaints of right upper extremity weakness
and right-sided facial droop. Head CT was negative for acute stroke. CTA of head and neck showed no large vessel occlusion or significant stenosis. NIH stroke scale score was 3 (right facial paralysis, RUE drift, and RLE drift). She was not a
candidate for TNK/IAT due to being outside of the time window and no LVO on CTA imaging. DAPT was initiated. Patient continued to have worsening of symptoms within 24 hours of presentation including worsening right-sided weakness, paresthesias of
right face arm and dysarthric speech. MRI brain confirms acute to subacute left pontine infarct with old right cerebellar and left caudate nucleus infarctions. Cardiology being asked to see patient given concern of new stroke and history of
paroxysmal atrial fibrillation.
Patient has history of paroxysmal atrial fibrillation in the setting of pulmonary hypertension and COVID-19 infection in February 2022. Atrial fibrillation with brief and self-limiting with spontaneous conversion to sinus rhythm at that time.
Echocardiogram at that time showed preserved ejection fraction and no significant valvular disease. Patient wore an outpatient monitor in September 2022 which failed to demonstrate recurrence of atrial fibrillation. Patient had been on Eliquis for
PE. That was discontinued at recommendation of pulmonary. Patient denies having chest pain, shortness of breath, palpitations, dizziness, lightheadedness.
Data Reviewed
-
EKG: Report Reviewed by me, Discussed with Physician, Discussed with Nurse and Discussed with Patient
MRI: Report Reviewed by me, Discussed with Physician, Discussed with Nurse and Discussed with Patient
Labs: Labs Reviewed by me, Discussed with Physician and Discussed with Patient
Old Records: Reviewed
--- NOTE | 2024-02-02 16:19 | CM ---
Briefly spoke with patient in the hallway but unable to assess patient; she was on her way to ECHO; CM will follow up tomorrow
Chart reviewed; Hx of MS, AFib; stroke alert on admission; oriented; lives alone in a 1st floor condo/apt.: uses motorized scooter inside; rolling walker outside; PT recommended Acute Rehab; contacted Attending to order PM&R consult; gave Nakita @
[facility] heads up (beds are tight)
[2024-02-02] MEDS: LIPITOR 40 MG PO (20:51)
[2024-02-02] MEDS: KLONOPIN 1 MG PO (21:44)
[2024-02-02] MEDS: TOPROL XL 12.5 MG PO (21:44)
[2024-02-03 03:00] VITALS: BP 114/70
[2024-02-03 05:35] LABS: % Basophils 0.5 % (0-2); % Eosinophils 11.3 % (0-6); % Immature Granulocytes 0.2 % (0-0.5); % Monocytes 7.3 % (1.7-9.3); % Neutrophils 55.7 % (42.2-75.2); Absolute Eosinophils 0.7 10^3/uL (0-0.7); Absolute Lymphocytes 1.5 10^3/uL (1.2-3.4); Absolute Monocytes 0.4 10^3/uL (0.1-0.6); Absolute Neutrophils 3.3 10^3/uL (1.4-6.5); Hematocrit 37.9 % (37.0-47.0); Hemoglobin 13.2 g/dL (12.0-16.0); Mean Corp Hgb Conc. 34.8 g/dL (33.0-37.0); Mean Corpuscular Hgb 31.2 pg (27.0-31.0); Mean Corpuscular Volume 89.6 fL (81.0-99.0); Mean Platelet Volume 9.8 fL (7.4-10.4); Nucleated Red Blood Cells % 0 %; Platelet Count 237 10^3/uL (130-400); Red Blood Cell Count 4.23 10^6/uL (4.20-5.40); Red Cell Dist. Width 13.7 % (11.5-14.5); White Blood Cell Count 5.9 10^3/uL (4.8-10.8)
[2024-02-03 05:57] LABS: Blood Urea Nitrogen 8 mg/dl (7-17); Calcium 9.4 mg/dl (8.4-10.2); Carbon Dioxide 24 mmol/L (22-30); Chloride 106 mmol/L (98-107); Estimated Creatinine Clearance 79 ml/min; Glucose 102 mg/dl (70-99); Potassium 3.5 mmol/L (3.5-5.1); Sodium 137 mmol/L (135-145); eGFR > 60.00
[2024-02-03 07:00] VITALS: BP 127/76
[2024-02-03] MEDS: NEURONTIN 600 MG PO ×2 (07:46→19:52)
[2024-02-03] MEDS: THERAGRAN 1 TABLET PO (07:47)
[2024-02-03] MEDS: LIORESAL 20 MG PO ×2 (07:47→19:52)
[2024-02-03] MEDS: REFRESH EYE DROPS (PF) 1 DROPS BOTH EYES ×2 (07:47→19:53)
[2024-02-03] MEDS: VITAMIN D3 (cholecalciferol) 50 MCG PO ×2 (07:47→19:53)
[2024-02-03] MEDS: VITAMIN B-12 1000 MCG PO (07:47)
[2024-02-03] MEDS: ELIQUIS 5 MG PO ×2 (07:47→19:53)
[2024-02-03] MEDS: PROVIGIL 200 MG PO (07:47)
--- NOTE | 2024-02-03 08:15 | W.PN.NEURO.1 ---
Today's Communication / Plan
-
-Continue apixaban full anticoagulation
-Continue atorvastatin 40 mg daily
-Range of motion exercises on the right arm
-Physical Occupational Therapy evaluations
-Physiatry evaluation for evaluation for acute rehab
-Discussed stroke recovery and prognosis
-Goal normotension
-Continue her existing home gabapentin and baclofen
-Neurology follow up 4-6 weeks outpatient with our office or local neurology, her MS neurologist is in [place]
Will follow as needed call with questions and concerns
Neuro Assessment/Plan
Assessment
69-year-old woman with past medical history of multiple sclerosis with chronic right leg weakness and a history of pulmonary embolism and atrial fibrillation associated with acute COVID infection presents to hospital with sudden onset severe right
arm weakness
Brain MRI demonstrates an acute stroke in the left jana explaining the weakness
CTA head and neck no significant large vessel atherosclerotic disease seen in the anterior posterior circulations
Risk factors for stroke include hypertension
Calculated LDL is 24 HDL is 67
With a distant history of atrial fibrillation stroke is suspicious for cardiac embolism for etiology, alternative would be a small vessel disease etiology given the location in the jana and history of hypertension. Would favor long-term
anticoagulation given [id number] score of 5, acute stroke and history of atrial fibrillation.
Subjective/Objective
Subjective Data
Date of Service: February 03, 2024
No acute events, right hand and arm still with weakness, no worse no better, no headache, no dysphagia, discussed stroke etiology, recovery
Objective Data
Vital Signs
Temp Pulse Resp BP Pulse Ox
98.3 F 83 14 114/70 96
02/03/24 03:00 02/03/24 03:00 02/03/24 03:00 02/03/24 03:00 02/03/24 03:00
Lab Results
02/03/24 05:11
02/03/24 05:11
PT 13.5 Sec (11.4-14.6) 02/01/24 19:34
INR 1.05 02/01/24 19:34
APTT 26.7 Sec (23.4-35.0) 02/01/24 19:34
Sodium 137 mmol/L (135-145) 02/03/24 05:11
Potassium 3.5 mmol/L (3.5-5.1) 02/03/24 05:11
BUN 8 mg/dl (7-17) 02/03/24 05:11
Glucose 102 mg/dl (70-99) H 02/03/24 05:11
Calcium 9.4 mg/dl (8.4-10.2) 02/03/24 05:11
LDL Cholesterol, Calc 24 mg/dl 02/02/24 05:39
Vitamin B12 870 pg/ml (239-931) 02/02/24 05:29
Patient Allergies
No Known Allergies Allergy (Verified 03/19/22 17:32)
Review of Systems
-
History Source: Patient
All other systems: Reviewed and negative
Constitutional: No Symptoms
EENT: No Symptoms Reported
Respiratory: No Symptoms
Cardiac: No Symptoms
Abdomen/GI: No Symptoms
Genitourinary: No Symptoms
Musculoskeletal: No Symptoms
Skin: No Symptoms
Neuro: Weakness
Endocrine: No Symptoms
Hematologic / Lymphatic: No Symptoms
Allergy / Immunology: No Symptoms
Physical Exam
-
General: Comfortable
Eyes: No Ptosis
HEENT: Normocephalic
Neck: No Bruits Bilaterally
Respiratory: Clear to Auscultation
Cardiac: Regular Rhythm
GI: Normal Bowel Sounds
Skin: Unremarkable
Extremities: No Clubbing
Psych: Unremarkable
Extended Neurological Exam
Mood & Affect: Mood Unremarkable and Affect Unremarkable
Attention Span & Concentration: Awake, Alert and Interactive
Memory: Unremarkable
Tremor: Hand Tremor Absent
Involuntary Movement: None
Speech: Quality Unremarkable and Dysarthric; Negative Expressive Aphasia or Receptive Aphasia
Cranial Nerve II: Left Eye: Pupillary Reactivity Unremarkable and Pupillary Size Unremarkable
Cranial Nerve II: Right Eye: Pupillary Reactivity Unremarkable and Pupillary Size Unremarkable
Cranial Nerves III, IV, : Extraocular Movement: Extraocular Movement Full in all Directions
Cranial Nerve VII: Facial Symmetry: Other (Right facial weakness)
Muscle Strength, Overall: Other (Right hand 1/5 movements, right shoulder 1/5 movements, right arm flexion/extension 0/5, right leg 3/5 hip flexion)
Data Reviewed
-
CT Head: Report Reviewed and Image Reviewed
MRI Head: Report Reviewed and Image Reviewed
Echocardiogram: Report Reviewed
[2024-02-03] MEDS: ADVAIR HFA 45/21 MCG INHALER 2 PUFF INH ×2 (08:20→19:19)
--- NOTE | 2024-02-03 09:25 | W.PN.HOSP.TC ---
Today's Communication/Plan
-
see bold
Assessment / Plan
Assessment / Plan
HPI: 69-year-old female, PMH Asthma, HTN, HLD, Multiple sclerosis (self caths) with chronic right foot drop; p/w right arm and right leg weakness upon waking up at 11 AM in the morning. This was also associated with right facial droop. Symptoms
persisted hence she called EMS and came to the emergency room. She took 3 baby aspirin at home.
In the ER, she was given 4th baby aspirin with Plavix. Neuro consulted. CT head and CT angio were unrevealing.
A/P:
# Acute�subacute CVA of the left jana
# New onset right arm/right leg weakness with right facial droop
CT head and CT angio in ER unrevealing, Not a candidate for TNK
Brain MRI confirms acute�subacute stroke
Patient has a history of paroxysmal atrial fibrillation, cardiology recommends starting Eliquis -neurology recommends 02/02 as start date
Stop aspirin/Plavix send she will be started on Eliquis
LDL at goal at 24, continue atorvastatin
Hemoglobin A1c 6.0
Consulted physiatry for acute rehab
#Paroxysmal atrial fibrillation
Appreciate cardiology input, echo requested
'History of paroxysmal atrial fibrillation in the setting of COVID-19 infection in February 2022. Episode was self-limiting with conversion to sinus rhythm. Patient had been on low-dose beta-jonn which was discontinued as outpatient. Outpatient
cardiac monitoring in September 2022 failed to demonstrate any recurrence of atrial fibrillation'
Cardiology started Toprol XL 12.5 mg at bedtime
Started Eliquis 02/02
# HTN
Resume losartan
# HLD
Continue statin
# Multiple sclerosis (self caths) with chronic Right foot drop
# Asthma, suspect mild intermittent
# Glucose intolerance, hemoglobin A1c 6.0
Diabetic diet
DVT prophylaxis: eliquis
Full code
Total time spent to see the patient on the floor, examine the patient, review data and lab results, discuss treatment plan with patient, nursing staff around 34 minutes.
Physical Exam
General: No acute distress
HEENT: Normocephalic, Atraumatic, EOMI, MMM
Respiratory: Clear to Auscultation bilaterally
Cardiac: Normal S1/S2, Regular Rate and Rhythm
GI: Soft, Nontender, Nondistended, Normal Bowel Sounds
Extremities: No Clubbing, Cyanosis, or Edema
Neuro:
Right-sided weakness
Right-sided facial droop
Psych: Calm, Cooperative
Derm: No Visible lesions
Anticipated Discharge: Within 24 hours
Subjective/Interval History
-
Date of Service: February 02, 2024
Continues to have R sided hemiparesis. No fever, no vomiting.
Objective Data
-
Vital Signs:
Vital Signs
Temp Pulse Resp BP Pulse Ox
98.1 F 91 17 122/85 97
02/02/24 15:00 02/02/24 15:00 02/02/24 15:00 02/02/24 15:00 02/02/24 15:00
I&O
02/01/24 02/02/24 02/03/24
06:59 06:59 06:59
Output Total 1100 / 1100 525 / 525
Balance -1100 / -1100 -525 / -525
[2024-02-03 11:00] VITALS: BP 148/86
--- NOTE | 2024-02-03 11:57 | CM ---
Addendum entered by Lucia Crews 02/03/24 14:26:
[facility] should have a bed tomorrow.
Original Note:
IA completed.
Patient lives alone in a 1 story apartment with no steps to enter.
Patient independent prior to admission.
Patient drives.
Patient uses a RW or electric scooter when out.
Patient has been in [facility] in the past and would like to return.
Referral placed.
PMR consult (P).
PT recommending acute rehab.
PCP: DR Vee
Pharamcy: Dread
Plan: acute rehab
--- NOTE | 2024-02-03 12:20 | W.PN.CARDCBS ---
Addendum entered and electronically signed by Curtis Montoya MD 02/03/24 15:47:
She has no new complaints
PMH, PSH, SH, FH: Reviewed
Allergies none
Outpatient meds reviewed, losartan, modafinil, Ocrevus, omega-3, ropinirole, atorvastatin
Current meds: Baclofen 20 twice daily, atorvastatin 40 mg daily, Neurontin, modafinil 200 mg a day, ropinirole 1 mg daily, Klonopin, metoprolol ER 12.5 twice daily apixaban 5 mg twice daily
ROS negative except as above
127/76, pulse 89, respiratory 16, afebrile, sats 96%, no distress, speech slightly slurred, slight facial droop, lungs clear, rate and rhythm without obvious murmurs, JVD okay no bruits, abdomen benign, extremities without edema
Hemoglobin 13.2, BUN and creatinine 8 and 0.5, potassium 3.5
MRI: Left pontine infarct, old right cerebellar infarct, white matter changes consistent with MS
Echo 02/02/2024: EF 55-60%, septum 1.1 cm, normal RV, normal atria, trace MR, trace AI, normal pulmonary artery systolic pressure
Impression:
Acute to subacute left Pontine stroke
frequent PVCs
Multiple sclerosis on chronic immunosuppression with Ocervus
Ambulatory dysfunction secondary to MS
Neurogenic bladder/chronic self-catheterization
Restless leg syndrome
Asthma
Hypertension
Hyperlipidemia
Pulmonary embolism in setting of COVID-19 infection February 2022
Paroxysmal atrial fibrillation in setting of COVID-19 infection February 2022
Bronchiectasis/interstitial lung disease
Colon polyp
Herniated disc
Plan:
She appears stable from a cardiac standpoint despite her recent stroke and underlying atherosclerosis. She is now on Eliquis.
Okay to transfer to [place] from our standpoint.
Manage for outpatient cardiac follow-up.
Recommended cardiac medications at transfer:
Atorvastatin 40 mg a day
Metoprolol ER 12.5 mg at bedtime
Apixaban 5 mg twice daily
Original Note:
Today's Communication / Plan
-
Cont Eliquis
Will arrange for follow up
Impression / Plan
-
PCP: Jagruti Escobar
Picking Machine Operator: Clara Bryson, last saw September 2022
Impression:
Presented 02/01/2024 with right-sided weakness and dysarthria
Acute to subacute left Pontine stroke
frequent PVCs
Multiple sclerosis on chronic immunosuppression with Ocervus
Ambulatory dysfunction secondary to MS
Neurogenic bladder/chronic self-catheterization
Restless leg syndrome
Asthma
Hypertension
Hyperlipidemia
Pulmonary embolism in setting of COVID-19 infection February 2022
Paroxysmal atrial fibrillation in setting of COVID-19 infection February 2022
Bronchiectasis/interstitial lung disease
Colon polyp
Herniated disc
Echo 03/09/2022: EF 60 to 65%, normal regional wall motion, trace MR, trace AR, trace TR, estimated PAP 27 mmHg
Echo 02/02/24: EF 55-60%, mild septal hypertrophy
Outpatient building custodial supervisor completed 09/22/2022: Sinus rhythm, heart rate range 55 to 130 bpm, average 89 bpm. No atrial fibrillation or flutter. Atrial tachycardia 7 episodes longest beat average 126 8 bpm rare PAC/PVC 0.03% / 0.11%
Plan:
-Remains in SR throughout admission, but h/o paroxysmal Afib and was previously anticoagulated around the time of a COVID infection in 02/2022. Then no recurrence of Afib on subsequent monitor and so Eliquis stopped.
-Patient now restarted on Eliquis 5 mg BID as of 02/03/24 AM.
-Previously ordered aspirin and Plavix have been stopped.
-Outpatient dose of losartan 25 mg daily has been continued.
-New to Toprol XL 12.5 mg HS largely for palptitations
HPI 02/02/2024:
Patient is a 69-year-old female with past medical history significant for multiple sclerosis, hypertension, hyperlipidemia, neurogenic bladder with self-catheterization, asthma, history of pulmonary embolism in setting of COVID-19 infection February
2021, paroxysmal atrial fibrillation in setting of COVID-19 infection February 2022, bronchiectasis/interstitial lung disease who presented to emergency department 01/31/2023 as a prehospital stroke alert with complaints of right upper extremity weakness
and right-sided facial droop. Head CT was negative for acute stroke. CTA of head and neck showed no large vessel occlusion or significant stenosis. NIH stroke scale score was 3 (right facial paralysis, RUE drift, and RLE drift). She was not a
candidate for TNK/IAT due to being outside of the time window and no LVO on CTA imaging. DAPT was initiated. Patient continued to have worsening of symptoms within 24 hours of presentation including worsening right-sided weakness, paresthesias of
right face arm and dysarthric speech. MRI brain confirms acute to subacute left pontine infarct with old right cerebellar and left caudate nucleus infarctions. Cardiology being asked to see patient given concern of new stroke and history of
paroxysmal atrial fibrillation.
Patient has history of paroxysmal atrial fibrillation in the setting of pulmonary hypertension and COVID-19 infection in February 2022. Atrial fibrillation with brief and self-limiting with spontaneous conversion to sinus rhythm at that time.
Echocardiogram at that time showed preserved ejection fraction and no significant valvular disease. Patient wore an outpatient monitor in September 2022 which failed to demonstrate recurrence of atrial fibrillation. Patient had been on Eliquis for
PE. That was discontinued at recommendation of pulmonary. Patient denies having chest pain, shortness of breath, palpitations, dizziness, lightheadedness.
Progress Note - Picking Machine Operator
Subjective
Date of Service: February 03, 2024
She is excited to go to [facility]
Objective
Labs:
02/03/24 05:11
02/03/24 05:11
Labs
Hgb 13.2 g/dL (12.0-16.0) 02/03/24 05:11
Hct 37.9 % (37.0-47.0) 02/03/24 05:11
Plt Count 237 10^3/uL (130-400) 02/03/24 05:11
PT 13.5 Sec (11.4-14.6) 02/01/24 19:34
INR 1.05 02/01/24 19:34
APTT 26.7 Sec (23.4-35.0) 02/01/24 19:34
Sodium 137 mmol/L (135-145) 02/03/24 05:11
Potassium 3.5 mmol/L (3.5-5.1) 02/03/24 05:11
BUN 8 mg/dl (7-17) 02/03/24 05:11
Creatinine 0.5 mg/dL (0.6-1.0) L 02/03/24 05:11
Glucose 102 mg/dl (70-99) H 02/03/24 05:11
Troponins
02/01/24
18:30
Troponin I < 0.012
Vital Signs and I&O:
Vital Signs
Temp Pulse Resp BP Pulse Ox
98.5 F 89 16 127/76 96
02/03/24 07:00 02/03/24 07:00 02/03/24 08:25 02/03/24 07:00 02/03/24 08:25
Vital Signs
Temp Pulse Resp BP Pulse Ox
98.5 F 89 16 127/76 96
02/03/24 07:00 02/03/24 07:00 02/03/24 08:25 02/03/24 07:00 02/03/24 08:25
Intake & Output
02/01/24 02/02/24 02/03/24 02/04/24
06:59 06:59 06:59 06:59
Intake Total 1170 / 1170
Output Total 1100 / 1100 1925 / 1925 450 / 450
Balance -1100 / -1100 -755 / -755 -450 / -450
Physical Exam
Physical Exam
GEN: AAOx3
HEENT: EOMI
LUNGS: No audible wheeze
CV: SR on tele
EXT: No edema
NEURO: Gross non-focal
SKIN: No rash
[2024-02-03 15:00] VITALS: BP 142/80
[2024-02-03] MEDS: COZAAR 25 MG PO (17:01)
[2024-02-03 19:00] VITALS: BP 151/74
--- NOTE | 2024-02-03 19:20 | PTCARENOTE ---
#16 fr shore placed in pt w/o difficulty. Pt tolerated well. shore draining clear yellow urine. will cont to assess.
[2024-02-03] MEDS: LIPITOR 40 MG PO (19:52)
[2024-02-03] MEDS: REQUIP 1 MG PO (21:31)
[2024-02-03] MEDS: KLONOPIN 1 MG PO (21:32)
[2024-02-03] MEDS: TOPROL XL 12.5 MG PO (21:32)
[2024-02-03 23:00] VITALS: BP 96/58
[2024-02-04 03:00] VITALS: BP 105/73
[2024-02-04 07:00] VITALS: BP 103/60
[2024-02-04 07:02] LABS: % Basophils 0.7 % (0-2); % Eosinophils 11.3 % (0-6); % Immature Granulocytes 0.3 % (0-0.5); % Lymphocytes 25.6 % (20.5-51.1); % Monocytes 10.3 % (1.7-9.3); % Neutrophils 51.8 % (42.2-75.2); Absolute Eosinophils 0.7 10^3/uL (0-0.7); Absolute Lymphocytes 1.5 10^3/uL (1.2-3.4); Absolute Monocytes 0.6 10^3/uL (0.1-0.6); Absolute Neutrophils 3.1 10^3/uL (1.4-6.5); Hematocrit 39.2 % (37.0-47.0); Hemoglobin 13.2 g/dL (12.0-16.0); Mean Corp Hgb Conc. 33.7 g/dL (33.0-37.0); Mean Corpuscular Hgb 30.6 pg (27.0-31.0); Mean Corpuscular Volume 90.7 fL (81.0-99.0); Mean Platelet Volume 9.9 fL (7.4-10.4); Nucleated Red Blood Cells % 0 %; Platelet Count 251 10^3/uL (130-400); Red Blood Cell Count 4.32 10^6/uL (4.20-5.40); Red Cell Dist. Width 13.6 % (11.5-14.5)
[2024-02-04 07:26] LABS: Blood Urea Nitrogen 12 mg/dl (7-17); Calcium 9.2 mg/dl (8.4-10.2); Carbon Dioxide 24 mmol/L (22-30); Chloride 105 mmol/L (98-107); Estimated Creatinine Clearance 79 ml/min; Glucose 94 mg/dl (70-99); Potassium 3.7 mmol/L (3.5-5.1); Sodium 138 mmol/L (135-145); eGFR > 60.00
[2024-02-04] MEDS: NEURONTIN 600 MG PO (07:42)
[2024-02-04] MEDS: PROVIGIL 200 MG PO (07:42)
[2024-02-04] MEDS: THERAGRAN 1 TABLET PO (07:42)
[2024-02-04] MEDS: VITAMIN B-12 1000 MCG PO (07:42)
[2024-02-04] MEDS: VITAMIN D3 (cholecalciferol) 50 MCG PO (07:43)
[2024-02-04] MEDS: COZAAR 25 MG PO (07:43)
[2024-02-04] MEDS: ELIQUIS 5 MG PO (07:43)
[2024-02-04] MEDS: LIORESAL 20 MG PO (07:43)
[2024-02-04] MEDS: REFRESH EYE DROPS (PF) 1 DROPS BOTH EYES (07:44)
[2024-02-04] MEDS: ADVAIR HFA 45/21 MCG INHALER 2 PUFF INH (08:07)
--- NOTE | 2024-02-04 08:38 | W.PN.HOSP.TC ---
Today's Communication/Plan
-
Discharge to acute rehab when bed available
Assessment / Plan
Assessment / Plan
HPI: 69-year-old female, PMH Asthma, HTN, HLD, Multiple sclerosis (self caths) with chronic right foot drop; p/w right arm and right leg weakness upon waking up at 11 AM in the morning. This was also associated with right facial droop. Symptoms
persisted hence she called EMS and came to the emergency room. She took 3 baby aspirin at home.
In the ER, she was given 4th baby aspirin with Plavix. Neuro consulted. CT head and CT angio were unrevealing.
A/P:
# Acute�subacute CVA of the left jana
# New onset right arm/right leg weakness with right facial droop
CT head and CT angio in ER unrevealing, Not a candidate for TNK
Brain MRI confirms acute�subacute stroke
Patient has a history of paroxysmal atrial fibrillation, cardiology recommends starting Eliquis
Started on Eliquis 5 mg twice a day 02/02, aspirin/Plavix discontinued
LDL at goal at 24, continue atorvastatin
Hemoglobin A1c 6.0
Seen by physiatry, stable for discharge to acute rehab when bed available
#Paroxysmal atrial fibrillation
Appreciate cardiology input, echo requested
'History of paroxysmal atrial fibrillation in the setting of COVID-19 infection in February 2022. Episode was self-limiting with conversion to sinus rhythm. Patient had been on low-dose beta-jonn which was discontinued as outpatient. Outpatient
cardiac monitoring in September 2022 failed to demonstrate any recurrence of atrial fibrillation'
Cardiology started Toprol XL 12.5 mg at bedtime
Started Eliquis 02/02
# Multiple sclerosis (self caths) with chronic Right foot drop
Has Warner while in the hospital, will remove prior to discharge
# HTN
Resumed losartan
# HLD
Continue statin
# Asthma, suspect mild intermittent
# Glucose intolerance, hemoglobin A1c 6.0
Patient requesting regular diet
DVT prophylaxis: eliquis
Full code
Total time spent to see the patient on the floor, examine the patient, review data and lab results, discuss treatment plan with patient, nursing staff around 35 minutes.
Physical Exam
General: No acute distress
HEENT: Normocephalic, Atraumatic, EOMI, MMM
Respiratory: Clear to Auscultation bilaterally
Cardiac: Normal S1/S2, Regular Rate and Rhythm
GI: Soft, Nontender, Nondistended, Normal Bowel Sounds
Extremities: No Clubbing, Cyanosis, or Edema
Neuro:
Right-sided weakness
Right-sided facial droop
Psych: Calm, Cooperative
Derm: No Visible lesions
Anticipated Discharge: Today
Subjective/Interval History
-
Date of Service: February 04, 2024
Patient continues to have right-sided hemiparesis, minimally improved from prior. No fever, no vomiting.
Objective Data
-
Labs:
Laboratory Results
02/04/24
06:24
WBC 6.0
Hgb 13.2
Hct 39.2
Plt Count 251
Sodium 138
Potassium 3.7
Chloride 105
Carbon Dioxide 24
BUN 12
Creatinine 0.5 L
Glucose 94
Calcium 9.2
Vital Signs:
Vital Signs
Temp Pulse Resp BP Pulse Ox
97.9 F 68 18 103/60 97
02/04/24 07:00 02/04/24 08:11 02/04/24 08:11 02/04/24 07:00 02/04/24 08:11
I&O
02/03/24 02/04/24 02/05/24
06:59 06:59 06:59
Intake Total 1170 / 1170 360 / 360
Output Total 1925 / 1925 1150 / 1150
Balance -755 / -755 -790 / -790
--- NOTE | 2024-02-04 10:25 | CM ---
Bed available at [facility] today after 3 pm.
Per Md stable for transfer.
[facility]
Report# [phone]
--- NOTE | 2024-02-04 10:31 | CON.MD ---
Addendum entered and electronically signed by Curtis Orosco MD 02/04/24 15:53:
Correction
genitourinary: Warner with clear yellow urine.
Patient would like to get back to intermittent cath program once in rehab.
Original Note:
Consultation - Medical
-
Referring Provider: Dr. Belem Jeffries
Chief Complaint: Stroke
History of Present Illness: 69-year-old right-handed female with PMH (as below) presented to [facility] on 02/01/2024 with right-sided weakness upon waking with dysarthria. MRI of the brain noting a subacute left pontine infarct. Noted
with PVCs and started on low-dose beta-jonn. Echocardiogram with EF 55-60%. No cardiac embolic source noted. Started back on apixaban for prevention of cardioembolic stroke. Right side is getting better.
Past Medical History: Asthma, HTN, HLD, MS, neurogenic bladder with self caths, neurogenic bowel, Right foot drop, chronic anemia, COVID-19, paroxysmal atrial fibrillation, pulmonary embolism during COVID infection, depression, herniated disc, colon
polyps
Procedure History:� Appendectomy, bilateral cataract surgery, lens implantation, eyelid surgery, ERCP, D&C
Family History: Early CAD�father of an MD at 52, mother with Alzheimer's
Social History:
Functional Level Premorbidly:�Modified independent using rolling walker or scooter, otherwise independent with all activities
Functional Level Currently:�Min assist for transfers, supervision bed mobility. Ambulating 4 steps forward and backward mod assist x 2 with rolling walker.
Tobacco:�Former
Alcohol:�Occasional
Drug use:�Denies
Lives with: Alone
24-hour assistance available: No
Number of floors: 1
# steps to enter: 0
Driving: Yes
Occupation: Disability
�
Allergies:
Allergy/AdvReac Type Severity Reaction Status Date / Time
No Known Allergies Allergy Verified 03/19/22 17:32
Review of Systems:
Constitutional: (x) abNormal _fatigue
Eye: (x) Normal _
Ear/Nose/Throat: (x) Normal _
Respiratory: (x) Normal _
Cardiovascular: (x) Normal _
Gastrointestinal: (x) Normal _
Genitourinary: (x) abNormal _neurogenic bladder requiring catheterization chronically
Musculoskeletal: (x) Normal _
Integumentary: (x) Normal _
Neurologic: (x) abNormal _right foot drop from MS, now right arm weakness from stroke, facial droop.
Psychiatric: (x) abNormal _depression OK
Endocrine: (x) Normal _
Hematologic/Lymphatic: (x) Normal _
Allergic/Immunologic: (x) Normal _
Medications:
Active Current Visit Medication List
Category Date Time Status
Acetaminophen [Tylenol/Feverall] Med 02/01/24 22:36 Active
650 mg RECTAL Q4HPRN PRN
Acetaminophen [Tylenol] Med 02/01/24 22:36 Active
650 mg PO Q4HPRN PRN
Albuterol [ProAIR HFA INHALER] Med 02/01/24 22:36 Active
2 puff INH R Q4HPRN PRN
Apixaban [Eliquis] Med 02/03/24 08:00 Active
5 mg PO BID
Artificial Tears (Pf) [Refresh Eye Drops (Pf)] Med 02/02/24 08:00 Active
1 drops BOTH EYES BID
Atorvastatin [Lipitor] Med 02/02/24 20:00 Active
40 mg PO DAILY@1999
Baclofen [Lioresal] Med 02/02/24 08:00 Active
20 mg PO BID
Calcium Carbonate Chewable [Tums] Med 02/01/24 22:36 Active
1 tablet PO Q4HPRN PRN
Cholecalciferol (Vitamin D3) [VITAMIN D3 ( Med 02/02/24 08:00 Active
cholecalciferol)]
50 mcg PO BID
Clonazepam [Klonopin] Med 02/02/24 22:00 Active
1 mg PO HS
Cyanocobalamin [Vitamin B-12] Med 02/02/24 08:00 Active
1,000 mcg PO DAILY
Flush (0.9% Sodium Chloride) [Flush (Nss)] Med 02/01/24 23:00 Active
See Dose Instructions IV PER PROTOCOL
Fluticasone/Salmeterol 45/21 [Advair Hfa 45/21 Mcg Med 02/02/24 08:00 Active
Inhaler]
2 puff INH R BID
Gabapentin [Neurontin] Med 02/02/24 08:00 Active
600 mg PO BID
HydrALAZINE [Apresoline] Med 02/01/24 22:36 Active
5 mg IV Q4HPRN PRN
Losartan [Cozaar] Med 02/03/24 16:00 Active
25 mg PO DAILY
Metoprolol Xl [Toprol Xl] Med 02/02/24 22:00 Active
12.5 mg PO HS
Modafinil [Provigil] Med 02/02/24 08:00 Active
200 mg PO DAILY
Multivitamin [Theragran] Med 02/02/24 11:00 Active
1 tablet PO DAILY
Ropinirole [Requip] Med 02/01/24 22:36 Active
1 mg PO HS
Vitals:
Temp Pulse Resp BP Pulse Ox
97.9 F 68 18 103/60 97
02/04/24 07:00 02/04/24 08:11 02/04/24 08:11 02/04/24 07:00 02/04/24 08:11
Height 5 ft 2 in
Actual Weight 70 kg
Body Mass Index (BMI) 28.3
Physical Exam:
General Appearance/Observation: Well-developed, well-nourished female in no apparent distress.
Pain/Comfort Assessment: Denies
Mood/Affect: Appropriate
Integumentary/Operative Site:
�� Pressure Ulcer Evaluation: absent over heels.
Eyes: Conjunctiva/Lids: normal�Pupils: pupils equal round and reactive to light and Accommodation
Ears/Nose/Throat: oral mucosa moist,� throat clear.�Lips/Teeth/Gums: normal
Neck: No muscle spasm or tenderness
Cardiovascular: Heart: regular, no murmur
Pulses: dorsalis pedis 2+ bilaterally
Respiratory: Respiratory Effort/Chest Expansion: normal�Auscultation: Clear to auscultation bilaterally
Gastrointestinal: abdomen not tender, no distension, normal abdominal bowel sounds
Genitourinary: No Warner
Extremities:�Edema: None�Cyanosis: None�Trophic�changes: None
Neurology Exam:
Orientation: Alert, Oriented to self, Time, Place
Memory: Intact for recent medical concerns
Repetition: Intact
Comprehension: Intact
Two step command: Intact
Naming: Intact
Cranial Nerves:
�� CNII:�Pupillary light reflex: Intact� ��Visual Field: Intact
�� CN III, IV, : Extraocular muscles: Intact
�� CN V:�Facial Sensation�at�Forehead: Intact ,�Maxilla: Intact,�Mandible: Intact
�� CN VII:�Facial movement: Right facial weakness
�� CN VIII:�Hearing: Normal
�� CN IX/X:�Speech & swallow: Mild dysarthria,�Position of Uvula: Midline
�� CN XI:�Shoulder shrug: Decreased on right
�� CN XII:�Tongue protrusion: right tongue deviation
Sensory:
�� Light touch: Intact in bilateral upper and lower extremities
Reflexes:
�� Biceps: 2+ bilaterally
�� Brachioradialis: 2+ bilaterally
�� Triceps: 2+ bilaterally
�� Patellar: 2+ bilaterally
�� Achilles: 2+ Left, 0 right
�� Babinski: Downgoing bilaterally
�� Clonus: None
�� Raheem: Negative bilaterally
Cerebellar: Dysmetria/Ataxia: None
Musculoskeletal: Motor: (Manual muscle scale 0-5)
Muscle SA EF WE EE FF FA HF KE DF EHL PF
Right� 1 2 0 2 2 1 4 5 0 0 1
Left 5 5 5 5 5 5 5 5 5 5 5
Tone: Normal in all extremities except decreased left foot.
Range of Motion: Passively within normal limits in all extremities
Lab Results
Laboratory Data
02/04/24 06:24
02/04/24 06:24
PT 13.5 Sec (11.4-14.6) 02/01/24 19:34
INR 1.05 02/01/24 19:34
APTT 26.7 Sec (23.4-35.0) 02/01/24 19:34
Total Bilirubin 0.7 mg/dl (0.2-1.3) 02/01/24 18:30
AST 29 U/L (14-36) 02/01/24 18:30
ALT 22 U/L (0-35) 02/01/24 18:30
Alkaline Phosphatase 93 U/L (38-126) 02/01/24 18:30
Total Protein 6.2 g/dl (6.3-8.2) L 02/01/24 18:30
Albumin 4.3 g/dl (3.5-5.0) 02/01/24 18:30
Diagnostic Results: as per HPI
Assessment
69 y/o R-handed F PMH (Asthma, HTN, HLD, MS, neurogenic bladder with self caths, neurogenic bowel, Right foot drop, chronic anemia, COVID-19, paroxysmal atrial fibrillation, pulmonary embolism during COVID infection, depression, herniated disc,
colon polyps) with 02/01/2024 right-hemiparesis and dysarthria from the presumed cardioembolic subacute left pontine infarct causing ADL and ambulatory dysfunction.
Plan
PM&R PT/OT to increase independence with ADLs, improve balance, coordination, endurance, strength, mobility, community reintegration, decreased burden of care on others and family education.
CVA: Secondary prophylaxis with apixaban, statin, and blood pressure control (SBP less than 180 and diastolic less than 100 to participate with therapy for ischemic stroke). Continue to monitor neurologic status.
Right dominant hemiparesis: High risk for falls and sliding out of chair/bed. Safety reinforced.
- Avoid using affected arm to help lift or pull patient as this will cause trauma to the shoulder.
Dysarthria: mild
MS: Had been on Ocrevus.� Continue to monitor neurologic status.
-Spasticity: baclofen 20 mg 2 times daily.� Requip for restless legs.
HTN: Metoprolol, losartan 25 mg
HLD: Statin
Atrial fibrillation with RVR: Apixaban anticoagulation and rate control with metoprolol. � � � � � � � � � � � � � � � � � � � � �
Acute pulmonary embolism history: Apixaban
Glaucoma?:�Not currently taking latanoprost, artificial tears
Psych: Psychology consult.� Provigil in a.m. and Klonopin at night.
Skin: monitor for pressure sores/rashes/lesions.
Pain: acetaminophen as needed.� Gabapentin for�neuropathic pain
Neurogenic bowel: Colace and Senna, PRN bisacodyl.�
Neurogenic bladder: Intermittent cath program at home.�
Safety: Continue to reinforce assistance with all transfers.
Code Status:� Full code
Dispo�(date/plan/equipment needs): Home with family care.� Social history reviewed.
Discharge Destination: Home
Functional and Medical Goals: Modified Independent with ADL�s, ambulation, transfers
Discharge Destination: Acute inpatient rehabilitation
Summary of recommendations:
Discharge Destination: Acute inpatient rehabilitation
CVA: Secondary prophylaxis with apixaban, statin, and blood pressure control (SBP less than 180 and diastolic less than 100 to participate with therapy for ischemic stroke). Continue to monitor neurologic status.
Right dominant hemiparesis: High risk for falls and sliding out of chair/bed. Safety reinforced.
- Avoid using affected arm to help lift or pull patient as this will cause trauma to the shoulder.
Dysarthria: Speech
MS: Had been on Ocrevus.� Continue to monitor neurologic status.
-Spasticity: baclofen 20 mg 2 times daily.� Requip for restless legs.
Neurogenic bowel: Colace and Senna, PRN bisacodyl.�
Neurogenic bladder: Intermittent cath program�
Thank you for allowing me to care for your patient. Please contact me with any questions or concerns.
[2024-02-04 11:00] VITALS: BP 123/78
[2024-02-04 14:54] VITALS: BP 142/82
--- NOTE | 2024-02-04 14:55 | W.DCSUMMARY ---
Discharge Summary
Discharge Data
Date of Admission: 02/01/24
Date of Discharge: 02/04/24
-
Pending Results: No
Hospital Course
Discharge diagnoses:
Acute stroke with right-sided hemiparesis
Paroxysmal atrial fibrillation
Glucose intolerance
Multiple sclerosis with neurogenic bladder requiring intermittent catheterization
Benign essential hypertension
Hyperlipidemia
Asthma, suspect mild intermittent
Consults: Cardiology, neurology, physiatry
Brain MRI:
In the left jana, there is a focal area of abnormal restricted diffusion, compatible with acute to subacute infarction.
Additionally, there are T2 and FLAIR white matter hyperintensities, with distribution highly suggestive of the given clinical diagnosis of multiple sclerosis. These white matter demyelinating lesions overall appear moderate in degree. They have
increased compared to MRI examination in 2012.
Focal regions of CSF signal intensity in the right cerebellar hemisphere and the body of the left caudate nucleus, with findings in this location suggestive of regions of old infarction.
C-spine MRI:
Subtle regions of increased T2 and STIR signal within the cervical spinal cord, which are compatible with demyelinating plaques in this patient with a history of multiple sclerosis.
There is no evidence for abnormal enhancement, with no evidence for active demyelination.
Changes of degenerative disc disease. At C4-5 and C5-6, there is slight compression of the anterior spinal cord and borderline mild overall central canal stenosis. There is also foraminal narrowing at these levels. See above narrative for detailed
findings.
Hospital course:
69-year-old female with a past medical history of multiple sclerosis with chronic foot drop, neurogenic bladder requiring intermittent catheterization, asthma, hypertension, and hyperlipidemia presented with right-sided weakness. She was found to
have acute stroke on brain MRI. She was seen in conjunction with neurology and cardiology. She has a history of paroxysmal atrial fibrillation. Initially she was started on aspirin and Plavix. She was then transitioned to Eliquis 5 mg twice a
day on 02/03/2024. Her LDL is at goal, she can continue her atorvastatin 40 mg daily. Her hemoglobin A1c is 6.0.
For her paroxysmal atrial fibrillation, cardiology started Toprol XL 12.5 mg at bedtime for rate control. She was allowed permissive hypertension initially. Then she was resumed on her home losartan 25 mg at bedtime.
Patient has multiple sclerosis with a chronic foot drop, as well as neurogenic bladder requiring intermittent catheterization. This can be continued at the acute rehab.
Patient is medically stable for discharge to acute rehab. She needs to follow-up with her primary care doctor 1 week after she leaves rehab, and cardiology in the office as scheduled.
Disposition: Acute rehab
Discharge planning: Required 38-minute
Discharge Plan
-
Patient Disposition: Acute Rehab Facility
Discharge Diagnosis/Procedures: Acute stroke with right-sided hemiparesis, paroxysmal atrial fibrillation, multiple sclerosis with neurogenic bladder requiring intermittent catheterization, benign essential hypertension, glucose
intolerance/prediabetes
Condition: Fair
Diet: Regular
Activity: As tolerated
Activity Restrictions/Additional Instructions:
Continue intermittent catheterization every 6 hours as needed.
Follow-up with your primary care doctor 1 week after you leave rehab, with cardiology as directed.
Referrals:
Kirstie Flannery PA-C [Specified Professional Personl] - 03/08/24 8:40 am (You have cardiology follow up with Kirstie Flannery PA-C on March 08 at 8:40 am in [address] in the [place]. If you are unable to make this please call [phone] to reschedule)
Amna Vee MD [Family Provider] - in one week
Prescriptions:
New
metoprolol succinate 25 mg Tablet Extended Release 24 Hr
12.5 mg PO HS Qty: 0 0RF
Eliquis 5 mg Tablet
5 mg PO BID Qty: 0 0RF
Continued
Ocrevus 300 MG/10 ML solution
300 mg IV [id number]
gabapentin 600 mg Tablet
600 mg PO BID
clonazepam 0.5 mg tablet
0.5 - 1 mg PO HS
Patient Comments:
02/01/2024: lst filled 01/27/24, 60 tabs for 30 days frm [facility]
cyanocobalamin (vitamin B-12) [Vitamin B-12] 1,000 mcg Tablet
1,000 mcg PO DAILY
fluticasone propion-salmeterol [Wixela Inhub] 100-50 mcg/dose blister with device
1 inh INHALATION R BID
omega 1-[id number]-[id number]-fish oil [Fish Oil] 1,000 mg (120 mg-180 mg) Capsule
1 cap PO DAILY
baclofen 20 mg tablet
20 mg PO BID
cholecalciferol (vitamin D3) 50 mcg (2,000 unit) tablet
50 mcg PO BID
losartan 25 mg tablet
25 mg PO HS
multivitamin with folic acid [Tab-A-Malathi] 400 mcg tablet
1 tab PO DAILY
atorvastatin 40 mg Tablet
40 mg PO DAILY@1999 Qty: 30 0RF
ropinirole 1 mg Tablet
1 mg PO HS Qty: 30 0RF
modafinil 200 mg Tablet
200 mg PO DAILY Qty: 30 0RF
calcium carbonate [Antacid (calcium carbonate)] 200 mg calcium (500 mg) Tablet,Chewable
1 tab PO Q4HPRN PRN (Reason: INDIGESTION) Qty: 30 0RF
albuterol sulfate 90 mcg/actuation Hfa Aerosol Inhaler
2 puff inhalation R Q4HPRN PRN (Reason: SOB/WHEEZE) Qty: 1 0RF
Refresh Classic (PF) 1.4-0.6 % Dropperette
1 drops BOTH EYES BID Qty: 1 0RF
Discharge Orders:
Discharge Patient (As Directed); Ordered 02/04/24
Ordered By: Jose Jeffries
Discharge Date and Time
Discharge Date/Time: 02/04/24 16:12
Print Language: BANGLADESHI
== END 2024-02-04 16:12 | DRG 65 ==
LOC: 4 WEST ACU 20:31
PROVIDERS: Nurse Practitioner Family; ADMITTING PHYSICIAN Internal Medicine; ATTENDING PHYSICIAN Family Medicine; CONSULT PHYSICIAN Internal Medicine Cardiovascular Disease; CONSULT PHYSICIAN Physical Medicine & Rehabilitation; EMERGENCY PHYSICIAN Student in an Organized Health Care Education/Training Program; FAMILY PHYSICIAN Internal Medicine; OTHER PHYSICIAN Psychiatry & Neurology Neurology
DX: I63.29 Cerebral infarction due to unspecified occlusion or stenosis of other precerebral arteries (principal); D84.821 Immunodeficiency due to drugs; H46.9 Unspecified optic neuritis; J84.9 Interstitial pulmonary disease, unspecified; G81.91 Hemiplegia, unspecified affecting right dominant side; G35 Multiple sclerosis; I10 Essential (primary) hypertension; J45.909 Unspecified asthma, uncomplicated; M21.371 Foot drop, right foot; R29.810 Facial weakness; E78.5 Hyperlipidemia, unspecified; R47.1 Dysarthria and anarthria; I48.0 Paroxysmal atrial fibrillation; E74.39 Other disorders of intestinal carbohydrate absorption; I70.90 Unspecified atherosclerosis; I49.3 Ventricular premature depolarization; F32.A Depression, unspecified; K21.9 Gastro-esophageal reflux disease without esophagitis; G25.81 Restless legs syndrome; R73.03 Prediabetes; N31.9 Neuromuscular dysfunction of bladder, unspecified; Z96.1 Presence of intraocular lens; Z98.41 Cataract extraction status, right eye; Z98.42 Cataract extraction status, left eye; Z87.891 Personal history of nicotine dependence; Z82.49 Family history of ischemic heart disease and other diseases of the circulatory system; Z80.6 Family history of leukemia; Z90.49 Acquired absence of other specified parts of digestive tract; Z79.02 Long term (current) use of antithrombotics/antiplatelets; Z79.82 Long term (current) use of aspirin; Z80.7 Family history of other malignant neoplasms of lymphoid, hematopoietic and related tissues; Z86.010 Personal history of colon polyps; Z86.16 Personal history of COVID-19; Z86.711 Personal history of pulmonary embolism; Z82.0 Family history of epilepsy and other diseases of the nervous system; Z79.60 Long term (current) use of unspecified immunomodulators and immunosuppressants; Z91.81 History of falling; Z86.73 Personal history of transient ischemic attack (TIA), and cerebral infarction without residual deficits
CPT/HCPCS: 70450; 70496; 70498; 70553; 72156; 80048; 80053; 80061; 82607; 82728; 82746; 82962; 83036; 83735; 84443; 84484; 85025; 85610; 85652; 85730; 92507; 92523; 92610; 93005; 93306; 94640; 97163; 97167; 97530; 97535; 99285; A9585; Q9967